=== PATIENT | female | born 1990 | race Caucasian/White ===

== ENCOUNTER 2019-12-19 11:32 | Emergency (ER) | payer OTHER, SELFPAY ==
[2019-12-19 11:34] VITALS: BP 144/80; PULSE 88; RESP 16; TEMP 36.4; O2SAT 100; BMI 30.6
[2019-12-19 11:44] VITALS: O2SAT 100
--- NOTE | 2019-12-19 11:52 | EKG12_ITS ---
Test Reason : SOB Blood Pressure : / mmHG Vent. Rate : 085 BPM Atrial Rate : 085 BPM P-R Int : 144 ms QRS Dur : 092 ms QT Int : 360 ms P-R-T Axes : 032 046 001 degrees QTc Int : 428 ms Normal sinus rhythm Nonspecfic T wave Abnormality Abnormal ECG Confirmed by FORREST BARAJAS, OWEN ([id number]), newspaper editor managing RAUL ROMANO ([id number]) on 12/21/2019 1:29:38 PM Referred By: GHISLAINE Confirmed By:OWEN CLAYTON MD
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
[2019-12-19 12:15] LABS: Absolute Lymphocyte Count 2.49 X10^3/uL (0.83-4.51); Absolute Neutrophil Count 6.8 X10^3/uL (2.0-7.7); Basophil# 0.03 X10^3/uL; Basophil% 0.3 % (0-1); Eosinophil# 0.05 X10^3/uL; Eosinophils% 0.5 % (0-5); Hematocrit 37.2 % (37-47); Hemoglobin 12.4 g/dL (12.0-15.0); Lymphocyte # 2.49 X10^3/ul (4.0); Lymphocyte % 24.9 % (19-41); Mean Corp Hgb Conc 33.3 g/dL (32-36); Mean Corpuscular Hgb 30.8 pg (27.0-32.0); Mean Corpuscular Volume 92.5 fL (81-99); Mean Platelet Vol. 9.7 fl (6.2-12.0); Monocyte# 0.59 X10^3/uL; Monocyte% 5.9 % (0-10); NRBC Flagged by Analyzer 0 % (0-5); Neutrophil # 6.76 X10^3/uL (2.7-7.7); Neutrophil % 67.8 % (47-70); Platelet Count 278 K/mm3 (150-450); RBC Distribution Width CV 13.7 % (11.6-14.6); RBC Distribution Width SD 46.1 fl (35.1-43.9); Red Blood Count 4.02 M/mm3 (4.2-5.4)
[2019-12-19 12:47] VITALS: BP 135/81; PULSE 85; RESP 18; O2SAT 99
[2019-12-19 12:47] LABS: Anion Gap 7 (5-15); BUN 6 mg/dL (7-18); BUN/Creat Ratio 10.3 RATIO (10-20); Calcium,Total 9.3 mg/dL (8.5-10.1); Chloride 104 mmol/L (98-107); Creatinine, Serum 0.58 mg/dL (0.55-1.02); EST Glomerular Filtration Rate 132 mL/min (>60); Est Glom Filt Rate - Afr Amer 160 mL/min (>60); Glucose 75 mg/dL (74-106); Potassium 3.9 mmol/L (3.5-5.1); Sodium Level 136 mmol/L (136-145)
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
[2019-12-19 12:54] LABS: D-Dimer Quantitative (DVT/PE) 5.58 FEU/ug/m (0.27-0.49)
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
[2019-12-19 14:24] VITALS: BP 122/84; PULSE 84; RESP 18
== END 2019-12-19 14:25 | disposition home or self-care (01) ==
PROVIDERS: Emergency Provider Emergency Medicine
DX: O99.513 Diseases of the respiratory system complicating pregnancy, third trimester (principal); R06.02 Shortness of breath; Z3A.28 28 weeks gestation of pregnancy
CPT/HCPCS: 71045; 71275; 80048; 84484; 85025; 85379; 93005; 99284; Q9967

== ENCOUNTER 2020-03-25 00:35 | Outpatient (CLI) | payer OTHER, SELFPAY ==
[2020-03-25] VITALS (14 sets, daily range): BP systolic 125–145; BP diastolic 76–88; PULSE 81–94; TEMP 36.9–37.1; O2SAT 97; BMI 32.5
[2020-03-25] MEDS: 0.9% Saline Lock 10 ML Syringe IV (01:10)
[2020-03-25 01:34] LABS: Hemoglobin 11.4 g/dL (12.0-15.0); Mean Corp Hgb Conc 32.6 g/dL (32-36); Mean Corpuscular Hgb 30.7 pg (27.0-32.0); Mean Corpuscular Volume 94.3 fL (81-99); Mean Platelet Vol. 10.3 fl (6.2-12.0); Platelet Count 195 K/mm3 (150-450); RBC Distribution Width CV 13.8 % (11.6-14.6); RBC Distribution Width SD 47.1 fl (35.1-43.9); Red Blood Count 3.71 M/mm3 (4.2-5.4); White Blood Count 7.7 K/mm3 (4.4-11.0)
[2020-03-25 01:37] LABS: Prothrombin Time (Protime)PT. 12.8 SECONDS (11.7-14.9)
[2020-03-25 01:38] LABS: Partial Thromboplast Time 26.3 Seconds (24.1-36.2)
[2020-03-25 01:46] LABS: Protein, Urine (Random) 28.4 mg/dL (<11.9); Protein:Creat Ratio 237 mg/g CRE (0-200)
[2020-03-25 02:03] LABS: AST(SGOT) 23 U/L (15-37); Alanine Aminotransfer ALT/SGPT 25 U/L (13-56); Creatinine, Serum 0.58 mg/dL (0.55-1.02); EST Glomerular Filtration Rate 132 mL/min (>60); Est Glom Filt Rate - Afr Amer 160 mL/min (>60); Uric Acid 5.8 mg/dL (2.6-6.0)
--- NOTE | 2020-03-25 13:08 | OB.TRI.NOTE ---
- Problem List (1) Elevated blood pressure affecting in third trimester, antepartum Status: Acute History of Present Illness Date of Service: 03/25/20 Reason For Visit: ELEVATED BLOOD PRESSURE Date of Service: 03/25/20 Final DECLAN: 04/07/20 Gestational age: 38 Weeks and 1 Days History of Present Illness: presented at 38 weeks with complaint of elevated blood pressure at home. hugged patient and felt strong pulse and decided to take BP. BP found to be 150/92 and 148/90 and instructed to go to labor and delivery for further evaluation. Mild headache, rating 1-2/10, took tylenol. No visual changes or RUQ pain. No vaginal bleeding, leakage of fluid or contractions. Did have episode of diarrhea. Allergies ceftriaxone Allergy (Verified 03/25/20 01:26) Rash Penicillins [PCN] Allergy (Verified 12/19/19 11:33) Rash sulfamethoxazole [From Bactrim] Allergy (Verified 12/19/19 11:33) Shortness of breath trimethoprim [From Bactrim] Allergy (Verified 12/19/19 11:33) Shortness of breath Laboratory Studies: Laboratory Tests 03/25/20 03/25/20 03/25/20 Range/Units 01:10 01:10 01:10 WBC (4.4-11.0) K/mm3 RBC (4.2-5.4) M/mm3 Hgb (12.0-15.0) g/dL Hct (37-47) % MCV (81-99) fL MCH (27.0-32.0) pg MCHC (32-36) g/dL RDW Std Deviation (35.1-43.9) fl RDW Coeff of Mary (11.6-14.6) % Plt Count (150-450) K/mm3 MPV (6.2-12.0) fl PT 12.8 (11.7-14.9) SECONDS INR 1.0 APTT 26.3 (24.1-36.2) Seconds Creatinine 0.58 (0.55-1.02) mg/dL Estim Creat Clear Calc 131.10 ml/min Est GFR (MDRD) Af Amer 160 (>60) mL/min Est GFR (MDRD) Non-Af 132 (>60) mL/min Uric Acid 5.8 (2.6-6.0) mg/dL AST 23 (15-37) U/L ALT 25 (13-56) U/L U Random Total Protein 28.4 H (<11.9) mg/dL Urine Creatinine 120.00 (NO RANGE EST.) mg/dL Protein/Creatinin Ratio 237 H (0-200) mg/g CRE 03/25/20 Range/Units 01:10 WBC 7.7 (4.4-11.0) K/mm3 RBC 3.71 L (4.2-5.4) M/mm3 Hgb 11.4 L (12.0-15.0) g/dL Hct 35.0 L (37-47) % MCV 94.3 (81-99) fL MCH 30.7 (27.0-32.0) pg MCHC 32.6 (32-36) g/dL RDW Std Deviation 47.1 H (35.1-43.9) fl RDW Coeff of Mary 13.8 (11.6-14.6) % Plt Count 195 (150-450) K/mm3 MPV 10.3 (6.2-12.0) fl PT (11.7-14.9) SECONDS INR APTT (24.1-36.2) Seconds Creatinine (0.55-1.02) mg/dL Estim Creat Clear Calc ml/min Est GFR (MDRD) Af Amer (>60) mL/min Est GFR (MDRD) Non-Af (>60) mL/min Uric Acid (2.6-6.0) mg/dL AST (15-37) U/L ALT (13-56) U/L U Random Total Protein (<11.9) mg/dL Urine Creatinine (NO RANGE EST.) mg/dL Protein/Creatinin Ratio (0-200) mg/g CRE Physical Exam Vitals: Vital Signs Temp Pulse BP Pulse Ox 98.7 F 93 139/88 H 97 03/25/20 00:58 03/25/20 02:15 03/25/20 02:15 03/25/20 00:58 NST - FHR Rate Baby A Baseline: 145 Variability:: Moderate Accelerations:: 15 x 15 Decelerations:: None NST Reactive:: Yes Uterine Activity:: None Impression/Plan A:Elevated Blood Pressure P: 1) BP mildly elevated and then normal range. Labs normal. No signs of preeclampsia at this time. Will take BP tomorrow and call if continues to be increase. 2) Follow up as scheduled.
--- NOTE | 2020-03-26 00:38 | OB.TRI.NOTE ---
- Problem List (1) Elevated blood pressure affecting in third trimester, antepartum Status: Acute History of Present Illness Date of Service: 03/25/20 Was patient seen by the physician?: No Reason For Visit: ELEVATED BLOOD PRESSURE Date of Service: 03/25/20 Final DECLAN: 04/07/20 Final DECLAN Source: US <20 weeks Gestational age: 38 Weeks and 2 Days History of Present Illness: at 38w1d presents with complaint of elevated BP at home. BP at home 150/90's x 2. No headache or visual changes but noted to nursing mild headache upon arrival, no visual changes. No contractions, vaginal bleeding or leakage of fluid. Was in for visit earlier today and BP normal with stable labs and discharged home. Allergies ceftriaxone Allergy (Verified 03/25/20 01:26) Rash Penicillins [PCN] Allergy (Verified 12/19/19 11:33) Rash sulfamethoxazole [From Bactrim] Allergy (Verified 12/19/19 11:33) Shortness of breath trimethoprim [From Bactrim] Allergy (Verified 12/19/19 11:33) Shortness of breath Laboratory Studies: Laboratory Tests 03/25/20 03/25/20 03/25/20 Range/Units 01:10 01:10 01:10 WBC (4.4-11.0) K/mm3 RBC (4.2-5.4) M/mm3 Hgb (12.0-15.0) g/dL Hct (37-47) % MCV (81-99) fL MCH (27.0-32.0) pg MCHC (32-36) g/dL RDW Std Deviation (35.1-43.9) fl RDW Coeff of Mary (11.6-14.6) % Plt Count (150-450) K/mm3 MPV (6.2-12.0) fl PT 12.8 (11.7-14.9) SECONDS INR 1.0 APTT 26.3 (24.1-36.2) Seconds Creatinine 0.58 (0.55-1.02) mg/dL Estim Creat Clear Calc 131.10 ml/min Est GFR (MDRD) Af Amer 160 (>60) mL/min Est GFR (MDRD) Non-Af 132 (>60) mL/min Uric Acid 5.8 (2.6-6.0) mg/dL AST 23 (15-37) U/L ALT 25 (13-56) U/L U Random Total Protein 28.4 H (<11.9) mg/dL Urine Creatinine 120.00 (NO RANGE EST.) mg/dL Protein/Creatinin Ratio 237 H (0-200) mg/g CRE 03/25/20 Range/Units 01:10 WBC 7.7 (4.4-11.0) K/mm3 RBC 3.71 L (4.2-5.4) M/mm3 Hgb 11.4 L (12.0-15.0) g/dL Hct 35.0 L (37-47) % MCV 94.3 (81-99) fL MCH 30.7 (27.0-32.0) pg MCHC 32.6 (32-36) g/dL RDW Std Deviation 47.1 H (35.1-43.9) fl RDW Coeff of Mary 13.8 (11.6-14.6) % Plt Count 195 (150-450) K/mm3 MPV 10.3 (6.2-12.0) fl PT (11.7-14.9) SECONDS INR APTT (24.1-36.2) Seconds Creatinine (0.55-1.02) mg/dL Estim Creat Clear Calc ml/min Est GFR (MDRD) Af Amer (>60) mL/min Est GFR (MDRD) Non-Af (>60) mL/min Uric Acid (2.6-6.0) mg/dL AST (15-37) U/L ALT (13-56) U/L U Random Total Protein (<11.9) mg/dL Urine Creatinine (NO RANGE EST.) mg/dL Protein/Creatinin Ratio (0-200) mg/g CRE Physical Exam Vitals: Vital Signs Temp Pulse BP Pulse Ox 98.5 F 91 129/76 H 97 03/25/20 17:00 03/25/20 17:57 03/25/20 17:57 03/25/20 00:58 NST - FHR Rate Baby A Baseline: 145 Variability:: Moderate Accelerations:: 15 x 15 Decelerations:: None NST Reactive:: Yes Uterine Activity:: None Impression/Plan A:Elevated BP without diagnosis of HTN Term P: 1) BP normal upon triage. 2) No repeat labs at this time 3) D/C home and to return for visit tomorrow in office. 4) notified of patient status
== END 2020-03-25 18:12 | disposition home or self-care (01) ==
PROVIDERS: Referring Provider Advanced Practice Midwife; Visit Provider Advanced Practice Midwife
DX: O26.893 Other specified pregnancy related conditions, third trimester (principal); Z3A.38 38 weeks gestation of pregnancy
CPT/HCPCS: 36415; 59025; 59050; 82565; 82570; 84156; 84450; 84460; 84550; 85027; 85610; 85730; 99218; G0378

== ENCOUNTER → 2020-03-30 | Outpatient (CLI) | payer OTHER, SELFPAY ==
[2020-03-25 00:50] VITALS: BMI 32.5
== END | disposition home or self-care (01) ==
LOC: LABSPEC 10:41
PROVIDERS: Referring Provider Obstetrics & Gynecology; Visit Provider Obstetrics & Gynecology
DX: Z11.59 Encounter for screening for other viral diseases (principal)
CPT/HCPCS: 87635; G2023; U0003

== ENCOUNTER 2020-04-03 09:20 | Inpatient (IN) | payer OTHER, SELFPAY ==
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
[2020-03-25 00:50] VITALS: BMI 32.5
[2020-04-03] VITALS (18 sets, daily range): BP systolic 111–135; BP diastolic 58–88; PULSE 66–98; RESP 16; TEMP 36.1–36.8; O2SAT 94–97; BMI 32.2
[2020-04-03] MEDS: Lactated Ringers 1,000 ML 999 ML IV (10:00)
[2020-04-03] MEDS: Acetaminophen 500 MG Tablet 1000 MG PO ×2 (10:26→17:43)
[2020-04-03] MEDS: Lactated Ringers 1,000 ML 100 ML IV ×2 (11:01→15:55)
[2020-04-03] MEDS: Sodium Citrate/Citric Acid 30 ML UDC PO (11:50)
[2020-04-03 12:17] LABS: Absolute Lymphocyte Count 2.23 X10^3/uL (0.83-4.51); Absolute Neutrophil Count 6.4 X10^3/uL (2.0-7.7); Basophil# 0.04 X10^3/uL; Basophil% 0.4 % (0-1); Eosinophils% 1.1 % (0-5); Hematocrit 37.7 % (37-47); Hemoglobin 12.7 g/dL (12.0-15.0); Lymphocyte # 2.23 X10^3/ul (4.0); Lymphocyte % 23.4 % (19-41); Mean Corp Hgb Conc 33.7 g/dL (32-36); Mean Corpuscular Hgb 31.4 pg (27.0-32.0); Mean Corpuscular Volume 93.3 fL (81-99); Mean Platelet Vol. 10.9 fl (6.2-12.0); Monocyte% 6.3 % (0-10); NRBC Flagged by Analyzer 0.2 % (0-5); Neutrophil # 6.44 X10^3/uL (2.7-7.7); Neutrophil % 67.7 % (47-70); Platelet Count 228 K/mm3 (150-450); RBC Distribution Width SD 47.3 fl (35.1-43.9); Red Blood Count 4.04 M/mm3 (4.2-5.4); White Blood Count 9.5 K/mm3 (4.4-11.0)
--- NOTE | 2020-04-03 12:29 | FALS_PTH ---
PATIENT: TATYANA HAWLEY LOC: [facility] U#:[id number] AGE/SX: 29/F ROOM: WP003 RE04/03/[address]: Dr. Ava Ignacio, MDDOB: 1990 BED: 1 DIS: 04/05/2020 SPEC #: [id number] RECD: 04/04/20 09:02 STATUS: PORSHA AGUILAR #: [id number] BRITTNI: 04/03/20 12:[address]: Ava Ignacio DEPT: SURGICAL PATHOLOGY RECD BY: Lv Hicks Tissues: Fallopian tube Procedures: Surgery Specimen Level II HEADER OPERATION: Tubal ligation PRE-OP DIAGNOSIS: Sterilization TISSUE SUBMITTED: Fallopian tubes, suture in right/left in two pieces MICROSCOPIC DIAGNOSIS Right and left fallopian tubes, bilateral salpingectomies: Complete cross-sections of right and left fallopian tubes with no pathologic change. AM:gaby 04/05/20 MICROSCOPIC DESCRIPTION Slides are reviewed. GROSS DESCRIPTION Received in fixative is one container labeled with the patient's name and designated bilateral fallopian tubes, suture in right tube. The specimen consists of bilateral fallopian tubes including fimbrial ends. The right tube is identified by a suture and measures 6 cm in length and 0.8 cm in diameter. The left tube is received in two pieces and measures 4 cm in length and up to 0.7 cm in diameter. Sections reveal unremarkable cut surfaces. Program Director Group Work sections are submitted in two cassettes as follows: 1 - right fallopian tube, 2 - left fallopian tube. / PAULO:gaby 04/04/20 TC:5 CPT: 51427 x2
--- NOTE | 2020-04-03 13:00 | PCM.OPRPT ---
Delivery Classification: Scheduled Final DECLAN: 04/09/20 Final DECLAN Source: US <20 weeks Gestational age: 39 Weeks and 1 Days boiler house operator: Bandar Rodrigues Type of Anesthesia:: Spinal Implants Used: none Date of Procedure: 04/03/20 Pre-Operative Diagnosis: term gestation, elective repeat C/S, desires sterilization Post-Operative Diagnosis: same, live female Indications for : Repeat Elective , Desires elective sterilization Description of Procedure: After informed consent was obtained the patient was taken to the operating room she was given spinal anesthesia. She was placed in the supine position. She was then prepped and draped in normal sterile fashion. Once spinal anesthesia was found to be adequate skin incision was made with a scalpel in a Pfannenstiel fashion. It was carried down to the underlying layer of the fascia. Fascia was then incised midline with scapel and extended laterally using curved shah. 2 straight Jesus Manuel's were placed in the superior aspect of the fascial edge and the rectus muscles were dissected off sharply. Attention was then turned to the inferior aspect where again the fascial edge was grasped with 2 straight Jesus Manuel clamps tented up and the rectus muscle dissected off sharply. At this time the rectus muscles were bluntly. Using blunt force the peritoneum was then entered adhesions appreciated to anterior aspect of uterus- taken down using blunt dissection and Metzenbaum scissor. Uterine incision was made in a low transverse fashion with the scalpel and then entered bluntly. Gentle opposing traction was placed to extend the uterine incision. The membranes were ruptured amniotic fluid clear. Infant's head was then brought to the uterine incision was delivered atraumatically followed by the rest infant's body. At this time delayed cord clamping was performed mouth nose were suctioned. was then handed to the waiting nursery team. The placenta was then removed with gentle traction. The uterus was removed from the intra-abdominal cavity is wrapped in a moist lap. He was cleared of all clots and debris using a moist lap. Ring clamps were placed on the uterine angles. #1 Vicryl suture was used in a running locked fashion for the first layer. Followed by second imbricating layer with #1 Vicryl. At this time the tubes and ovaries were evaluated. There were some adhesions on the left tube. Decision was made to proceed with the bilateral salpingectomy. The LigaSure was used to ligate and seal along the mesosalpinx encapsulating the fimbriated ends on left tube- then uterus placed back into intraabdominal cavity. This was repeated on right side. Good hemostasis was appreciated. Zac was placed over the pedicles. Uterine incision was then reevaluated and good hemostasis was appreciated. At this time then the uterus was placed back into abdominal cavity uterine incision was evaluated and noted to be of good hemostasis. The peritoneum and Muscle was grasped with Kellys. Zac placed over muscle- It was reapproximated using #2 Vicryl suture in a running fashion. The fascia was then reapproximated using #1 Vicryl in a running fashion. Subcutaneous layer was evaluated and Bovie was used for any small oozing- Zac placed- per #2-0 plain gut suture was then used to reapproximate the subcutaneous layer 4-0 Vicryl on a Edil needle was used to reapproximate the skin in a subcutaneous fashion. Dry sterile dressing was applied. Instrument lap needle count were correct ?2. Anticipated normal postoperative course for this patient. Amniotic Membrane Rupture Type: Artificial Amniotic Fluid Description: Clear, Bloody Drain: Steven to straight drain Cord Entanglement: None Nuchal Cord Compression: Without compression Cord Vessel Description: 3 Vessels Esitmated Blood Loss (ml): 700 Infant Gender: Female (1 minute): 8 (5 minute): 9 Antibiotic Given: Clindamycin 600mg IV x1 and Gentamicin 1.5mg/kg IV x1 Pt instructed on risks of surgery: Bleeding, Anesthesia Risks, Infection, Permanency, Failure Rate of 1 to 2%, Injury to surrounding structure(s) including bowel and bladder, Availability of other non-permanent control options - Admit VTE Documentation VTE Present on Admission: Yes VTE Mechan Device Prophylaxis: SCD's VTE Pharm Prophylaxis ordered?: No
[2020-04-03] MEDS: Lactated Ringers 1,000 ML 150 ML IV (13:10)
[2020-04-03] MEDS: Oxytocin 30 units/NS 500 ml 30 UNITS/500 ML IV.SOLN 167 UNITS IV (13:10)
[2020-04-03 13:43] LABS: Pathology Specimen OB SEE PATHOLOGY REPORT
[2020-04-03] MEDS: Ketorolac 30 MG/ML Syringe IV (17:44)
[2020-04-03] MEDS: Gabapentin 600 MG Tablet PO (21:38)
[2020-04-04] MEDS: Ketorolac 30 MG/ML Syringe IV ×3 (00:01→12:14)
[2020-04-04 00:19] VITALS: BP 130/80; PULSE 74; RESP 16; TEMP 36.6
[2020-04-04] MEDS: 0.9% Saline Lock 10 ML Syringe IV ×4 (00:29→12:14)
[2020-04-04 04:25] VITALS: BP 126/80; PULSE 76; RESP 16; TEMP 36.9; O2SAT 96
--- NOTE | 2020-04-04 04:44 | NURSING ---
0430 increased drainage noted on mepliex on return from bathroom area circled and dated.
[2020-04-04] MEDS: Acetaminophen 500 MG Tablet 1000 MG PO ×4 (05:39→17:44)
[2020-04-04 05:41] LABS: Hematocrit 31.5 % (37-47); Hemoglobin 10.5 g/dL (12.0-15.0); Mean Corp Hgb Conc 33.3 g/dL (32-36); Mean Corpuscular Hgb 31.3 pg (27.0-32.0); Mean Platelet Vol. 10.2 fl (6.2-12.0); Platelet Count 165 K/mm3 (150-450); RBC Distribution Width CV 13.9 % (11.6-14.6); RBC Distribution Width SD 46.9 fl (35.1-43.9); Red Blood Count 3.35 M/mm3 (4.2-5.4)
[2020-04-04 07:50] VITALS: BP 120/80; PULSE 79; RESP 16; TEMP 37.1; O2SAT 95
[2020-04-04] MEDS: Prenatal Vits Tablet 1 TABLET PO (09:22)
[2020-04-04] MEDS: Aspirin 81 MG TAB.CHEW PO (09:23)
--- NOTE | 2020-04-04 10:13 | PCM.PN.OB ---
Subjective: Patient seen at bedside. infant during visit. Stated feeling well. Ambulating since last night and voiding without difficulty. Appetite is good. Does not feel like she is passing flatus at this point. May possibly want to be discharged home later today. Pain controlled with Tylenol. - Physical Exam Vitals/I&O's: Vital Signs Temp Pulse Resp BP Pulse Ox 98.7 F 79 16 120/80 95 04/04/20 07:50 04/04/20 07:50 04/04/20 07:50 04/04/20 07:50 04/04/20 07:50 Oxygen Delivery Method Room Air Weight: 193 lb 9.6 oz Body Mass Index (BMI) 32.2 Intake and Output for Last 24 Hours 04/02/20 04/03/20 04/04/20 23:59 23:59 23:59 Intake Total 3095.42 / 3095.42 1280 / 1280 Output Total 700 / 700 600 / 600 Balance 2395.42 / 2395.42 680 / 680 General: Alert, Oriented x3, Cooperative, No apparent distress Neck: Supple Lungs: Normal air movement Cardiovascular: Regular rate Abdomen: Bowel Sounds Present Extremities: No Calf Tenderness Skin: No rashes Neurological: Cranial nerves II-XII grossly intact Psych/Mental Status: Normal Affect, Appropriate Laboratory Results 04/03/20 10:00: WBC 9.5, RBC 4.04 L, Hgb 12.7, Hct 37.7, MCV 93.3, MCH 31.4, MCHC 33.7, RDW Std Deviation 47.3 H, RDW Coeff of Mary 14.0, Plt Count 228, MPV 10.9, Immature Gran % (Auto) 1.100 H, Neut % (Auto) 67.7, Lymph % (Auto) 23.4, Saline % (Auto) 6.3, Eos % (Auto) 1.1, Baso % (Auto) 0.4, Absolute Neuts (auto) 6.4, Absolute Lymphs (auto) 2.23, Nucleated RBC % 0.2 04/03/20 10:00: Blood Type B POSITIVE, Antibody Screen NEGATIVE 04/04/20 05:35: WBC 10.0, RBC 3.35 L, Hgb 10.5 L, Hct 31.5 L, MCV 94.0, MCH 31.3, MCHC 33.3, RDW Std Deviation 46.9 H, RDW Coeff of Mary 13.9, Plt Count 165, MPV 10.2 Current Medications Acetaminophen (Tylenol) 1,000 mg PO Q6 [facility] Last Admin: 04/04/20 05:39 Dose: 1,000 mg Documented by: Aspirin (Aspirin, Baby) 81 mg PO DAILYCM [facility] Last Admin: 04/04/20 09:23 Dose: 81 mg Documented by: Bisacodyl (Dulcolax) 10 mg RECTAL UD PRN PRN Reason: If no BM Diphenhydramine HCl (Benadryl) 25 mg PO Q6H PRN PRN PRN Reason: ITCHING Stop: 04/04/20 13:25 Gabapentin (Neurontin) 600 mg PO BID [facility] Last Admin: 04/03/20 21:38 Dose: 600 mg Documented by: Hydrocortisone (Hytone) 1 applic TOPICAL TID PRN PRN; Protocol PRN Reason: Discomfort Naloxone HCl 4 mg/ Dextrose 504 mls @ 0 mls/hr IV .Q0M PRN; Protocol PRN Reason: Respiratory depression Ibuprofen (Motrin) 600 mg PO Q6 [facility] Ketorolac Tromethamine (Toradol (Bkc)) 30 mg IV Q6 [facility] Stop: 04/04/20 12:01 Last Admin: 04/04/20 05:39 Dose: 30 mg Documented by: Methylergonovine Maleate (Methergine) 0.2 mg IM X1 PRN PRN Reason: Uterine Atony Naloxone HCl (Narcan) 0.02 mg IV Q1M PRN PRN Reason: RR <10 and pt unresponsive Ondansetron HCl (Zofran) 4 mg IV Q4H PRN PRN PRN Reason: Nausea Oxycodone HCl (Oxyir) 5 - 10 mg PO Q4H PRN PRN PRN Reason: Pain Score 4-10/10 Multivit/Folic Acid/Iron ([facility]) [facility] Last Admin: 04/04/20 09:22 Dose: 1 tablet Documented by: Prochlorperazine Edisylate (Compazine Iv) 10 mg IV Q6H PRN PRN PRN Reason: NAUSEA Senna/Docusate Sodium (Senokot-S, Faustina-Colace) 0 tablet PO DAILY [facility] Sertraline HCl (Zoloft) 50 mg PO DAILY [facility] Simethicone (Mylicon) 80 mg PO PCHS PRN PRN Reason: Indigestion/stomach pain Sodium Chloride () 5 - 15 ml IV UD PRN PRN Reason: SALINE FLUSH Last Admin: 04/04/20 05:47 Dose: 10 ml Documented by: Medical Necessity - Tobacco Use Smoking Status: Never smoker Assessment/Plan All Active Problems Elevated blood pressure affecting in third trimester, antepartum (Acute) A/P S/P Day 1 repeat C/S Pain management Routine care Increase ambulation Possible discharge later tonight or tomorrow
[2020-04-04] MEDS: Sertraline 50 MG Tablet PO (10:21)
[2020-04-04] MEDS: Senna/Docusate Sodium 1 Tablet PO (10:22)
[2020-04-04] MEDS: Gabapentin 600 MG Tablet PO ×2 (10:22→22:10)
[2020-04-04 12:22] VITALS: BP 119/71; PULSE 94; RESP 14; TEMP 36.2; O2SAT 95
[2020-04-04 16:00] VITALS: BP 124/69; PULSE 80; RESP 16; TEMP 36.2; O2SAT 95
[2020-04-04] MEDS: Ibuprofen 600 MG Tablet PO (17:45)
[2020-04-04 19:38] VITALS: BP 132/82; PULSE 81; RESP 14; TEMP 36.9
[2020-04-05] MEDS: Ibuprofen 600 MG Tablet PO ×4 (00:11→17:30)
[2020-04-05] MEDS: Acetaminophen 500 MG Tablet 1000 MG PO ×3 (00:11→12:55)
[2020-04-05 01:08] VITALS: BP 131/89; PULSE 89; RESP 16; TEMP 36.7
--- NOTE | 2020-04-05 08:02 | PN.OBGYN_ITS ---
Subjective: Patient seen at bedside. Resting with eyes closed. Pain is controlled. Passing flatus. Ambulating in room. without difficulty Objective: Dressing has old drainage/blood. No new drainage. Uterus firm at U. Lochia minimal - Physical Exam Vitals/I&O's: Vital Signs Temp Pulse Resp BP Pulse Ox 98.1 F 89 16 131/89 H 95 04/05/20 01:08 04/05/20 01:08 04/05/20 01:08 04/05/20 01:08 04/04/20 16:00 Oxygen Delivery Method Room Air Weight: 193 lb 9.6 oz Body Mass Index (BMI) 32.2 Intake and Output for Last 24 Hours 04/03/20 04/04/20 04/05/20 23:59 23:59 23:59 Intake Total 3095.42 / 3095.42 1280 / 1280 Output Total 700 / 700 600 / 600 Balance 2395.42 / 2395.42 680 / 680 General: Alert Neck: Supple Lungs: Clear to auscultation, Normal air movement Cardiovascular: Regular rate, Regular Rhythm Abdomen: Bowel Sounds Present, Soft, Passing Flatus Extremities: Capillary Refill Less than 3 Seconds, No Calf Tenderness Neurological: Cranial nerves II-XII grossly intact Psych/Mental Status: Normal Affect Current Medications Acetaminophen (Tylenol) 1,000 mg PO Q6 [facility] Last Admin: 04/05/20 06:13 Dose: 1,000 mg Documented by: Aspirin (Aspirin, Baby) 81 mg PO DAILYCM [facility] Last Admin: 04/04/20 09:23 Dose: 81 mg Documented by: Bisacodyl (Dulcolax) 10 mg RECTAL UD PRN PRN Reason: If no BM Gabapentin (Neurontin) 600 mg PO BID [facility] Last Admin: 04/04/20 22:10 Dose: 600 mg Documented by: Hydrocortisone (Hytone) 1 applic TOPICAL TID PRN PRN; Protocol PRN Reason: Discomfort Naloxone HCl 4 mg/ Dextrose 504 mls @ 0 mls/hr IV .Q0M PRN; Protocol PRN Reason: Respiratory depression Ibuprofen (Motrin) 600 mg PO Q6 [facility] Last Admin: 04/05/20 06:15 Dose: 600 mg Documented by: Methylergonovine Maleate (Methergine) 0.2 mg IM X1 PRN PRN Reason: Uterine Atony Naloxone HCl (Narcan) 0.02 mg IV Q1M PRN PRN Reason: RR <10 and pt unresponsive Ondansetron HCl (Zofran) 4 mg IV Q4H PRN PRN PRN Reason: Nausea Oxycodone HCl (Oxyir) 5 - 10 mg PO Q4H PRN PRN PRN Reason: Pain Score 4-10/10 Multivit/Folic Acid[facility] Last Admin: 04/04/20 09:22 Dose: 1 tablet Documented by: Prochlorperazine Edisylate (Compazine Iv) 10 mg IV Q6H PRN PRN PRN Reason: NAUSEA Senna/Docusate Sodium (Senokot-S, Faustina-Colace) 0 tablet PO DAILY [facility] Last Admin: 04/04/20 10:22 Dose: 1 tablet Documented by: Sertraline HCl (Zoloft) 50 mg PO DAILY [facility] Last Admin: 04/04/20 10:21 Dose: 50 mg Documented by: Simethicone (Mylicon) 80 mg PO HS PRN PRN Reason: Indigestion/stomach pain Sodium Chloride () 5 - 15 ml IV UD PRN PRN Reason: SALINE FLUSH Last Admin: 04/04/20 12:14 Dose: 10 ml Documented by: Medical Necessity - Tobacco Use Smoking Status: Never smoker Assessment/Plan All Active Problems Elevated blood pressure affecting in third trimester, antepartum (Acute) Post op day #2 Routine care Pain management Patient desires discharge home today
--- NOTE | 2020-04-05 08:10 | DCINST_ITS ---
Discharge Diet: No Restrictions Discharge Activity: May not drive while taking narcotic pain medications., May Shower May resume sexual activity in: 6-8 weeks Weight Bearing Status: Full weight bearing Lifting Restrictions: 25 lbs Additional Instructions: If you experience any of the following, contact your healthcare provider. * Bleeding that soaks a pad every hour for 2 hours * Fever 100.4 or higher * Unrelieved incision or abdominal pain * Swelling, redness, discharge or bleeding from your incision or episiotomy site * Your incision begins to separate * Problems urinating (including inability to urinate or burning while urinating). * Visual changes * Severe headache * Flu-like symptoms * Pain or redness in one of both of your breasts * Pain, warmth, tenderness or swelling in your legs, especially the calf area * Frequent nausea and vomiting * Symptoms of depression or anxiety If you experience any of the following, call 911 or go to the nearest Emergency Room. * Chest pain * Problems breathing * Seizure activity * Partial or complete paralysis of a body part, slurred speech, weakness or drooping of the face, or a sudden inability to walk or hold your balance Allergies/Adverse Reactions: Allergies ceftriaxone Allergy (Verified 03/25/20 01:26) Rash Penicillins [PCN] Allergy (Verified 12/19/19 11:33) Rash sulfamethoxazole [From Bactrim] Allergy (Verified 12/19/19 11:33) Shortness of breath trimethoprim [From Bactrim] Allergy (Verified 12/19/19 11:33) Shortness of breath Medications to take at Discharge Aspirin 81 mg PO DAILY 03/25/20 Gabapentin 600 mg PO BID 03/25/20 Vits [Prenatabs FA] 1 tab PO DAILY 03/25/20 Sertraline HCl [Zoloft] 50 mg PO DAILY 03/25/20 Follow-Up: Call to make an appointment with your doctor for an incision check in 1-2 weeks. You will also need a 6 week post- follow up appointment. Test results from this visit will be discussed in further detail at your follow- up appointment, if applicable. Primary Care Physician: DEANNA LUNA [Other]
[2020-04-05] MEDS: Prenatal Vits Tablet 1 TABLET PO (09:27)
[2020-04-05] MEDS: Sertraline 50 MG Tablet PO (09:28)
[2020-04-05] MEDS: Aspirin 81 MG TAB.CHEW PO (09:28)
[2020-04-05] MEDS: Gabapentin 600 MG Tablet PO (09:28)
[2020-04-05 09:30] VITALS: BP 139/89; PULSE 84; RESP 16; TEMP 37.1; O2SAT 95
--- NOTE | 2020-04-05 11:55 | DS.PCM_ITS ---
Discharge Date and Diagnosis Date of Admission: 04/03/20 Date of Discharge: 04/05/20 Hospital Course and Treatment Summary of Care Provided: The patient is a 29 year old F at term gestation at 39w1d for elective repeat C/S and sterilization on 04/03/20. Course uncomplicated. Discharge home on 04/05/20 - Physical Exam Vitals/I&O's: Vital Signs Temp Pulse Resp BP Pulse Ox 98.8 F 84 16 139/89 H 95 04/05/20 09:30 04/05/20 09:30 04/05/20 09:30 04/05/20 09:30 04/05/20 09:30 Oxygen Delivery Method Room Air Weight: 193 lb 9.6 oz Body Mass Index (BMI) 32.2 Intake and Output for Last 24 Hours 04/03/20 04/04/20 04/05/20 23:59 23:59 23:59 Intake Total 3095.42 / 3095.42 1280 / 1280 Output Total 700 / 700 600 / 600 Balance 2395.42 / 2395.42 680 / 680 Current Medications Acetaminophen (Tylenol) 1,000 mg PO Q6 [facility] Last Admin: 04/05/20 06:13 Dose: 1,000 mg Documented by: Aspirin (Aspirin, Baby) 81 mg PO DAILYCM [facility] Last Admin: 04/05/20 09:28 Dose: 81 mg Documented by: Bisacodyl (Dulcolax) 10 mg RECTAL UD PRN PRN Reason: If no BM Gabapentin (Neurontin) 600 mg PO BID [facility] Last Admin: 04/05/20 09:28 Dose: 600 mg Documented by: Hydrocortisone (Hytone) 1 applic TOPICAL TID PRN PRN; Protocol PRN Reason: Discomfort Naloxone HCl 4 mg/ Dextrose 504 mls @ 0 mls/hr IV .Q0M PRN; Protocol PRN Reason: Respiratory depression Ibuprofen (Motrin) 600 mg PO Q6 [facility] Last Admin: 04/05/20 06:15 Dose: 600 mg Documented by: Methylergonovine Maleate (Methergine) 0.2 mg IM X1 PRN PRN Reason: Uterine Atony Naloxone HCl (Narcan) 0.02 mg IV Q1M PRN PRN Reason: RR <10 and pt unresponsive Ondansetron HCl (Zofran) 4 mg IV Q4H PRN PRN PRN Reason: Nausea Oxycodone HCl (Oxyir) 5 - 10 mg PO Q4H PRN PRN PRN Reason: Pain Score 4-10/10 Multivit/Folic Acid/Iron ([facility]abs Fa) [facility] Last Admin: 04/05/20 09:27 Dose: 1 tablet Documented by: Prochlorperazine Edisylate (Compazine Iv) 10 mg IV Q6H PRN PRN PRN Reason: NAUSEA Senna/Docusate Sodium (Senokot-S, Faustina-Colace) 0 tablet PO DAILY [facility] Last Admin: 04/05/20 09:28 Dose: Not Given Documented by: Sertraline HCl (Zoloft) 50 mg PO DAILY [facility] Last Admin: 04/05/20 09:28 Dose: 50 mg Documented by: Simethicone (Mylicon) 80 mg PO HS PRN PRN Reason: Indigestion/stomach pain Sodium Chloride () 5 - 15 ml IV UD PRN PRN Reason: SALINE FLUSH Last Admin: 04/04/20 12:14 Dose: 10 ml Documented by: Discharge Diet: No Restrictions Discharge Activity: May not drive while taking narcotic pain medications., May Shower May resume sexual activity in: 6-8 weeks Weight Bearing Status: Full weight bearing Home Medications: Medications to take at Discharge Gabapentin 600 mg PO BID 03/25/20 Vits [Prenatabs FA] 1 tab PO DAILY 03/25/20 Sertraline HCl [Zoloft] 50 mg PO DAILY 03/25/20 Primary Care Physician: DEANNA LUNA [Other] Medical Necessity - Tobacco Use Smoking Status: Never smoker Meaningful Use Info Meaningful Use Diagnoses (Choose all that apply): None applicable
[2020-04-05 16:00] VITALS: BP 140/80; PULSE 86; RESP 16; TEMP 36.6; O2SAT 95
== END 2020-04-05 18:55 | disposition home or self-care (01) | DRG 798 ==
PROVIDERS: Admitting Provider Obstetrics & Gynecology; Referring Provider Obstetrics & Gynecology; Visit Provider Obstetrics & Gynecology
PROC: 10E0XZZ Delivery of Products of Conception, External Approach (ICD-10-PCS; CPT 59514; principal; 2020-04-03 11:45)
DX: O34.219 Maternal care for unspecified type scar from previous cesarean delivery (principal); Z37.0 Single live birth; O99.344 Other mental disorders complicating childbirth; F32.9 Major depressive disorder, single episode, unspecified; F41.9 Anxiety disorder, unspecified; O26.893 Other specified pregnancy related conditions, third trimester; R03.0 Elevated blood-pressure reading, without diagnosis of hypertension; Z30.2 Encounter for sterilization; Z3A.37 37 weeks gestation of pregnancy; Z79.82 Long term (current) use of aspirin; Z79.899 Other long term (current) drug therapy
CPT/HCPCS: 85025; 85027; 86850; 86900; 86901; 88302; 99218; 99251; J7120; A4216; G0378; G0463

== ENCOUNTER → 2023-01-07 | Outpatient (CLI) | payer OTHER, SELFPAY ==
--- NOTE | 2023-01-07 14:16 | NEURO ---
NCS and/or EMG Patient Report Ordering Doctor: Rakel Suggs DATE OF SERVICE: 01/07/23 Cheri presents for electrodiagnostic testing of the lower limbs. She reports pain primarily in the right leg radiating to the toes. She reports intermittent lower back pain. Electrodiagnostic findings: Right median motor nerve demonstrates normal distal latency, amplitude and conduction velocity. Normal left peroneal motor response. Normal tibial motor response bilaterally. Sensory responses are within normal limits. Prolonged right tibial H reflex. F waves are within normal limits. On needle EMG 1+ complex repetitive discharges noted in the right gastrocnemius. All other muscles tested showed no evidence of denervation with normal motor unit action potentials. Electrodiagnostic impression: This is an abnormal study in the lower limbs. 1. Electrodiagnostic findings are suggestive of chronic denervation in the right S1 dermatome, possibly related to chronic right S1 radiculopathy. 2. No electrodiagnostic evidence is noted for peripheral polyneuropathy.
== END | disposition home or self-care (01) ==
LOC: PSN 08:24
PROVIDERS: PCP Family Medicine; Referring Provider Anesthesiology Pain Medicine; Visit Provider Anesthesiology Pain Medicine
DX: M54.16 Radiculopathy, lumbar region (principal)
CPT/HCPCS: 95886; 95911

== ENCOUNTER 2024-05-25 11:30 | Outpatient (RCR) | payer OTHER, SELFPAY ==
--- NOTE | 2024-04-27 10:52 | HP.PTEVAL ---
Patient's Visit Information Visit Information Visit Information: TATYANA HAWLEY is a 33 year old F referred to Physical Therapy by Dr. Rakel Suggs MD with a diagnosis of Cervical and Right Arm Radiculopathy. Date of Evaluation: 04/27/24 Physical Therapist: Catrachita So DPT Visit Plan Frequency: 2x /Week Duration: 4 Weeks Plan: Scapular s/s- decreased dural signs HEP Given IE: Postural correction, scapular retraction, chin tucks Subjective Subjective: Patient reports that she noticed that she noticed the pain more after she had injections for her sciatica and she noticed N/T in her scapula. She had to do PT for her hip flexors and she noticed pain in her neck area. 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 She takes Motrin but does not like to take a lot due to having a stent. She has been having neck/right arm pain since February. She has not had an injection since Nov 24- she has a follow up scheduled in May. The pain is located in the cervical spine on the right side and in the across the whole shoulder blade. The pain radiates into the fingers. She journals and has to stop due to N/T. She has taught her daughter to climb up due to not being able to lift from the floor. 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 Worst: 7/10. Best: 0/10 Eases: ice, Tylenol, Rub. Sleep: not disturbed- stomach sleeper. She has not had x-rays or MRI's of the cervical spine. 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 Does have migraines but has not noticed an increase or change. Right hand dominate. She had been seeing chiro and massage- 2021 which helped. PMHx: stent, sciatica, IBS, PCOS, adenmyosis Meds: Zoloft, Buspirone, Tylenol Arthritis, Objective Objective: Posture: forward head, rounded shoulders- can correct with verbal cues but does not maintain Gait: good arm swing and trunk rotation Palpation: tender along medial border of the scapula, insertion of the levator, cervical paraspinals, bicipital groove, PA glides to the cervical spine on the transverse processes bilateral right>left ROM: WNL in all planes of the cervical and UE- does report increased tightness with SB to the left Strength: Scap: fair minus mild winging Shoulder: 4+/5 in all motions, Elbow: 5/5 Telemetry Nurse: Left: 40 lbs Right: 50 lbs Sensation: WNL to gross touch Special Test: Spurlings: positive Distraction: decreased s/s, Passive Stretching to levator and upper trap no change in s/s but did feel significant stretching. Special Tests R Shoulder Drop Sign - IS Test: Negative R Shoulder Empty Can - SS: Negative R Shoulder Neer - Impingement: Negative R Shoulder Dolan Bruce - Impingement: Negative Balance/Special Test Scores Oswestry Neck Score: 18 Goals Goal 1:: Patient will be I with HEP and progression Goal Time Frame: 4-6 Weeks Goal 2:: Patient will report no radicular s/s for 1 week Goal Time Frame: 4-6 Weeks Goal 3:: Patient will maintain proper posture t/o tx session to demo increased scap s/s Goal Time Frame: 4-6 Weeks Goal 4:: Patient will report 80% improvement Goal Time Frame: 4-6 Weeks Rehabilitation Potential Physical Therapy Diagnosis: Patient presents with radicular s/s down her right arm- she has decreased scapular strength/stabilization leading to poor posture Rehabilitation Potential: Good Anticipated Interventions Patient/Client Instruction: Educate patient on: Benefits of Fitness Program Therapeutic Exercise to Include: Strength training, Endurance training, Agility training, Body mechanics, Postural training, Flexibilty training, Neuromotor development, Passive ROM, Active ROM and Scapular Strength/Stabilization For the Purpose of:: To improve muscle performance and motor function Manual Therapy Techniques to Include: Soft tissue mobilization TENS: Yes Cryotherapy (ice pack, ice massage): Yes Thermo therapy (hot pack): Yes Ultrasound (thermal/non thermal): Yes Text: Thank you for the opportunity to evaluate your patient. For Medicare and Medicare HMO plans, please review the plan of care and approve it. It will need to be FAXED BACK to us at [phone] for Medicare purposes. For Medicare only, by signing this I certify the plan of care. Please let me know if there are questions or concerns regarding this plan of care. Physician Signature: Date:
--- NOTE | 2024-05-25 12:19 | HP.PTDCSUM ---
Discharge Summary D/C summary: It has been my pleasure to treat TATYANA HAWLEY referred by Dr. Rakel Suggs MD, with the diagnosis of Cervical and Right Arm Radiculopathy for a total of 7 visit(s). Discharge Date: 05/25/24 Please see the following information for a summary of their discharge status. Subjective Subjective: Pt is ready for discharge. Feeling much better now Pain neck: Pain Intensity (Out of 10): 3 R SH: Pain Intensity (Out of 10): 3 Overall Improvement % Improvement: 75 Objective Objective/Function: Pt is I with HEP Pt reports no radicular sx's for over one week 75% improvement at this time. Pt displays proper posture at all times Goals Goal 1:: Patient will be I with HEP and progression Goal Progress: Goal Met Goal 2:: Patient will report no radicular s/s for 1 week Goal Progress: Goal Met Goal 3:: Patient will maintain proper posture t/o tx session to demo increased scap s/s Goal Progress: Goal Met Goal 4:: Patient will report 80% improvement Goal Progress: Progressing Plan Plan: Discharge to HEP D/C Information Discharge Comments: Discharge to HEP d/c sentence: If there are questions or concerns regarding this patient's physical therapy, please feel free to call me at [phone]. Thank you for the referral of this patient. Sincerely, Manjit Hooker, PT, ATC Balance/Gait/Functional tests Balance/Special Test Scores Oswestry Neck Score: 10 Improvement % Improvement: 75
== END 2024-05-25 12:41 | disposition home or self-care (01) ==
LOC: PT 11:30
PROVIDERS: PCP Family Medicine; Referring Provider Anesthesiology Pain Medicine; Visit Provider Anesthesiology Pain Medicine
DX: M54.2 Cervicalgia (principal); M79.603 Pain in arm, unspecified
CPT/HCPCS: 97110; 97140; 97162; 97530